=== PATIENT | female | born 2000 | race Caucasian/White ===

== ENCOUNTER → 2020-07-17 | Emergency (ER) | payer OTHER ==
[~2020-07-17] VITALS: Ht 152.4 cm; Wt 50.8 kg
[~2020-07-17] MED LIST: ABILIFY10 MG PO; AMOX-CLAV 875-1 EACH PO; EFFEXOR XR75 MG PO; FLUCONAZOLE200 MG PO; INTESTINEX680 M1 PO; LAMICTAL100 M1 PO; PEPCID AC20 MG PO; SPRINTEC 28 DA1 EACH PO; STRATTERA80 MG PO; VISTARIL50 MG PO; WELLBUTRIN SR100 MG PO; WELLBUTRIN XL300 MG; ZOFRAN8 MG PO
== END | disposition left against medical advice (07) ==
LOC: ER 12:19
DX: N39.0 Urinary tract infection, site not specified (principal); B96.29 Other Escherichia coli [E. coli] as the cause of diseases classified elsewhere; N20.0 Calculus of kidney; K59.09 Other constipation; R16.0 Hepatomegaly, not elsewhere classified; Z03.818 Encounter for observation for suspected exposure to other biological agents ruled out

== ENCOUNTER 2020-07-18 11:13 | Inpatient (IN) | payer OTHER ==
[~2020-07-18] VITALS: Ht 152.4 cm; Wt 50.8 kg
[~2020-07-18 11:13] MED LIST changes: -AMOX-CLAV 875-1 EACH PO; -FLUCONAZOLE200 MG PO; -INTESTINEX680 M1 PO; -PEPCID AC20 MG PO; -WELLBUTRIN XL300 MG; -ZOFRAN8 MG PO
[2020-07-18] MEDS ORDERED: WELLBUTRIN XL300 MG (11:32)
[2020-07-22] MEDS ORDERED: AMOX-CLAV 875-1 EACH PO (13:22)
[2020-07-22] MEDS ORDERED: PEPCID AC20 MG PO (13:23)
[2020-07-22] MEDS ORDERED: FLUCONAZOLE200 MG PO (13:23)
[2020-07-22] MEDS ORDERED: INTESTINEX680 M1 PO (13:23)
[2020-07-22] MEDS ORDERED: ZOFRAN8 MG PO (13:24)
== END 2020-07-22 13:49 | disposition home or self-care (01) | DRG 690 ==
LOC: ER 11:13 → SEC-K 20:37 → MEDJ 07-19 10:22 → SEC-K 07-19 12:52 → MEDI 07-19 15:39
PROVIDERS: ADMIT Internal Medicine; ATTEND Internal Medicine
PROC: BU4CZZZ Ultrasonography of Uterus and Ovaries (ICD-10-PCS; principal; 2020-07-18)
PROC: BT04ZZZ Plain Radiography of Kidneys, Ureters and Bladder (ICD-10-PCS; 2020-07-18)
DX: N39.0 Urinary tract infection, site not specified (principal); N73.0 Acute parametritis and pelvic cellulitis; F31.89 Other bipolar disorder; B95.2 Enterococcus as the cause of diseases classified elsewhere; Z20.822 Contact with and (suspected) exposure to COVID-19; B96.29 Other Escherichia coli [E. coli] as the cause of diseases classified elsewhere; B37.3 Candidiasis of vulva and vagina; K56.41 Fecal impaction